=== PATIENT | male | born 1970 | race African-American/Black ===

== ENCOUNTER 2025-07-21 11:08 | Emergency (ER) | payer OTHER ==
[~2025-07-21] VITALS: Ht 172.7 cm; Wt 85.0 kg
[2025-07-21 11:23] VITALS: O2SAT 100
[2025-07-21 11:44] LABS: CLARITY URINE CLEAR (CLEAR); COLOR URINE YELLOW (YELLOW); GLUCOSE URINE NEGATIVE (NEGATIVE); KETONES URINE NEGATIVE (NEGATIVE); LEUKOCYTE ESTERASE URINE NEGATIVE (NEGATIVE); NITRITE URINE NEGATIVE (NEGATIVE); OCCULT BLOOD URINE TRACE (NEGATIVE); PH URINE 7.5 (4.5-8.0); PROTEIN URINE TRACE (NEGATIVE); SPECIFIC GRAVITY URINE 1.015 (1.005-1.030); UROBILINOGEN URINE 0.2 E.U./dL (0.2-1.0)
[2025-07-21 12:06] LABS: WBC URINE 0-2 /hpf (0-2)
[2025-07-21 12:07] LABS: SQUAMOUS EPITHELIAL CELL URINE 1+ /lpf (RARE/1+)
[2025-07-21 12:08] LABS: BACTERIA URINE TRACE
[2025-07-21 12:14] LABS: BASOPHILS % 0.9 % (0.0-2.0); EOSINOPHILS % 0.3 % (0.0-5.0); HEMATOCRIT. 43.2 % (42.0-52.0); HEMOGLOBIN. 13.7 g/dL (14.0-18.0); LYMPHOCYTES % 25.3 % (20.0-50.0); MEAN PLATELET VOLUME 8.6 fl (7.4-10.4); MONOCYTES % 8.9 % (2.0-8.0); NEUTROPHILS % 64.6 % (40.0-76.0); PLATELET 230 x1000/uL (130-400); RED BLOOD CELL COUNT 5.83 mill/uL (4.7-6.1); RED CELL DISTRIBUTION WIDTH 15.1 % (11.6-14.6)
[2025-07-21 12:27] LABS: CREATININE 1.1 mg/dL (0.6-1.3)
[2025-07-21 12:28] LABS: TROPONIN I HIGH SENSITIVITY < 4 ng/L (3.0-53); UREA NITROGEN BLOOD 8 mg/dL (9-23)
[2025-07-21 13:22] LABS: ASPARTATE AMINOTRANSFERASE 22 IU/L (<34); BILIRUBIN DIRECT 0.1 mg/dL (<=3.0); BILIRUBIN TOTAL 0.6 mg/dL (0.1-1.0); PROTEIN TOTAL 7.8 g/dL (6.0-8.3)
[2025-07-21] MEDS: ONDANSETRON HCL 4MG/2ML INJ IV NR (13:51)
[2025-07-21] MEDS: SODIUM CHLORIDE 0.9% 500 ML IV NR (13:51)
[2025-07-21] MEDS: MORPHINE SULFATE 4 MG/ML INJ (FOR IV/IM USE) IM NR (13:51)
[2025-07-21] MEDS ORDERED: ONDA4TAB50 MT (16:04)
[2025-07-21] MEDS ORDERED: OXYC-662 MT (16:06)
[2025-07-21] MEDS ORDERED: AMLO5TAB88 MT (16:06)
[2025-07-21 16:15] VITALS: BP 185/100; PULSE 65; RESP 16; TEMP 37; O2SAT 99
== END 2025-07-21 16:29 | disposition home or self-care (01) ==
LOC: ER 11:08
DX: K80.20 Calculus of gallbladder without cholecystitis without obstruction (principal); I10 Essential (primary) hypertension; Z88.0 Allergy status to penicillin; Z79.899 Other long term (current) drug therapy
CPT/HCPCS: 80076; 80048; 81003; 83690; 85025; 84484; 36415; 74176; 96372; 96374; 99285; J2405; J2270; Z7610